=== PATIENT | male | born 1960 | race Caucasian/White ===

== ENCOUNTER 2019-12-24 22:29 | Observation (INO) | payer OTHER ==
--- NOTE | 2019-12-24 22:56 | Emergency Department Record ---
History of Present Illness - General Chief Complaint: Recheck - Other Stated Complaint: NEEDS TRANSFUSION Time Seen by Provider: 12/24/19 22:32 Source: Patient, Family Mode of arrival: Ambulatory Limitations: No limitations - History of Present Illness Initial Comments: The patient is here due to being weak, fatigued and mildly dizzy for one day. He has a long hx of myelodyplastic syndrome and needs frequent blood transfusions. The patient is visiting from [facility] and is going home in 2 days for a Stem Cell transplant evaluation. He was here 5 weeks ago and did receive 2 units of blood and since that visit has received 10 units more. Now he is feeling like he is anemic again. The patient denies any fever, CP, or SOB but he does have a mild SÁNCHEZ which also is typical for when he needs blood. MD Complaint: Other Onset/Timin -: Days(s) Returns Today for: Other Symptoms Since Prior Visit: Other Associated Symptoms: Malaise - Related Data Home Medications Medication Instructions Recorded Confirmed Last Taken Amiloride HCl 12/24/19 Unknown Bumetanide 2 mg 12/24/19 Unknown [id number] 12/24/19 Unknown Deferiprone [Ferriprox] BID 12/24/19 12/24/19 Pramipexole Di-HCl [Mirapex] 1.25 mg PO 12/24/19 Unknown Rivaroxaban [Xarelto] DAILY 12/24/19 12/24/19 19:30 Ruxolitinib Phosphate [Jakafi] BID 12/24/19 12/24/19 19:30 Tamsulosin HCl [Flomax] 0.4 mg PO 12/24/19 Unknown Allergies Allergy/AdvReac Type Severity Reaction Status Date / Time guaifenesin [From Mucinex D] AdvReac PT UNSURE Verified 11/21/19 10:58 OF REACTION pseudoephedrine AdvReac PT UNSURE Verified 11/21/19 10:58 [From Mucinex D] OF REACTION Travel Screening - Travel/Exposure Within Last 30 Days Have you traveled within the last 30 days?: Yes Location Detail:: from [place] - Travel/Exposure Within Last Year Have you traveled outside the [place] in the last year?: No - Additonal Travel Details Have you been exposed to anyone with a communicable illness?: No - Travel Symptoms Symptom Screening: None Review of Systems Constitutional: Denies: Chills, Fever Eyes: Denies: Eye discharge ENT: Denies: Congestion Respiratory: Denies: Cough, Dyspnea Cardiovascular: Denies: Chest pain Endocrine: Reports: Fatigue Gastrointestinal: Denies: Nausea Genitourinary: Denies: Dysuria Musculoskeletal: Denies: Arthralgia Neurological: Denies: Abnormal gait, Confusion Past Medical History - SOCIAL HISTORY Smoking Status: Never smoker Alcohol Use: None Drug Use: None - RESPIRATORY Hx Respiratory Disorders: No Hx Pneumonia: Yes (x3 MRSA) Comment:: sinus surgery - CARDIOVASCULAR Hx Cardio Disorders: No - NEURO Hx Neuro Disorders: No - GI Hx GI Disorders: No - Hx Genitourinary Disorders: No - ENDOCRINE Hx Endocrine Disorders: No Hx Diabetes: No Hx Thyroid Disease: No - MUSCULOSKELETAL Hx Musculoskeletal Disorders: Yes Hx Arthritis: Yes Hx Back Injury: Yes - PSYCH Hx Psych Problems: No - HEMATOLOGY/ONCOLOGY Hx Hematology/Oncology Disorders: Yes Hx Anemia: Yes Hx Blood Disorders: Yes Hx Blood Transfusions: Yes Hx Blood Transfusion Reaction: No Family Medical History Any Significant Family History?: No Hx Resp Disorders: Father, Mother Physical Exam - General General Appearance: Alert, Oriented x3, Cooperative, No acute distress - Head Head exam: Atraumatic, Normocephalic, Normal inspection - Eye Eye exam: Normal appearance, PERRL - ENT Throat exam: Normal inspection. negative: Tonsillar erythema, Tonsillar exudate - Neck Neck exam: Normal inspection, Full ROM. negative: Tenderness - Respiratory Respiratory exam: Normal lung sounds bilaterally. negative: Respiratory distres s - Cardiovascular Cardiovascular Exam: Regular rate, Normal rhythm, Normal heart sounds - Extremities Extremities exam: Pedal edema (1+ bilaterally.). negative: Normal inspection - Neurological Neurological exam: Alert. negative: Motor sensory deficit Course Vital Signs 12/24/19 22:34 Temperature 97.9 F Pulse Rate [ 96 H Pulse Ox Probe] Respiratory 20 Rate Blood Pressure 122/72 [Left Arm] Pulse Ox 100 - Reevaluation(s) Reevaluation #1: The patient is doing very well at this time. I did discuss the low HGB and the need for admission for transfusions and the patient does agree. 12/24/19 23:41 Medical Decision Making - Data Complexity MDM Data: Labs Ordered and/or Reviewed, X-Ray Ordered and/or Reviewed, EKG Ordered and/or Reviewed - Lab Data Result diagrams: 12/24/19 22:54 12/24/19 23:01 - EKG Data -: EKG Interpreted by Me EKG: No Acute Changes (Prolonged MN interval.) - Radiology Data Radiology results: Report reviewed (CXR; Neg.) Disposition Disposition: Admit Clinical Impression: Anemia Qualifiers: Anemia type: unspecified type Qualified Code(s): D64.9 - Anemia, unspecified Disposition: Still a Patient at [facility] Decision to Admit: Admit from ER Decision to Admit Date: 12/24/19 Decision to Admit Time: 23:45 Accepting Physician: Fuad. Time Discussed w/Accepting Physician: 23:44 Condition: (2) Stable Time of Disposition: 23:44 Quality - Quality Measures Quality Measures: N/A - Blood Pressure Screening View Details: Yes Does Patient Have Any of the Following: No Blood Pressure Classification: Normal BP Reading Systolic Measurement: 102 Diastolic Measurement: 62 Screening for High Blood Pressure: < Normal BP, F/U Not Required > [[id number]]
[2019-12-24 23:22] LABS: ABSOLUTE NEUTROPHIL COUNT 1.34; HEMATOCRIT 18.3 % (42.0-52.0); MEAN CORPUSCULAR HEMOGLOBIN 27.6 pg (27-33); MEAN CORPUSCULAR HGB CONC 30.1 g/dl (32-36); MEAN PLATELET VOLUME 11.5 fl (7.4-10.4); PLATELET COUNT 85 K/uL (130-400); RED BLOOD COUNT 1.99 M/uL (4.40-5.70); RED CELL DISTRIBUTION WIDTH 16.8 % (11.5-14.5)
[2019-12-24 23:25] LABS: HEMOGLOBIN 5.5 gm/dl (14.0-18.0)
[2019-12-24 23:30] LABS: INR 1.3; PARTIAL THROMBOPLASTIN TIME 27.3 SECONDS (24.5-39.1); PROTHROMBIN TIME (PATIENT) 13.2 SECONDS (9.5-12.1)
[2019-12-24 23:31] LABS: BLOOD UREA NITROGEN 14 mg/dL (8-23); CREATININE 0.6 mg/dL (0.7-1.2); EST GLOMERULAR FILTRATION RATE > 60 mL/min
[2019-12-24 23:32] LABS: TOTAL PROTEIN 6.4 g/dL (6.6-8.7)
[2019-12-24 23:34] LABS: GLUCOSE,RANDOM 111 mg/dL (74-109)
[2019-12-24 23:36] LABS: ALB/GLOB RATIO 1.7 (1.1-1.8); ALT/SGPT 51 U/L (<41); AST/SGOT 36 U/L (10.0-50.0)
[2019-12-24 23:37] LABS: ALKALINE PHOSPHATASE 52 U/L (40-129)
[2019-12-24 23:38] LABS: PLATELET ESTIMATE DECREASED (NORMAL)
[2019-12-24] MEDS ORDERED: ACETAMINOPHEN 325 MG TAB PO ONE (23:42)
[2019-12-25] MEDS ORDERED: DIPHENHYDRAMINE HCL 25 MG CAPSULE PO PRN (00:09)
[2019-12-25] MEDS ORDERED: ACETAMINOPHEN 325 MG TAB PO PRN (00:09)
[2019-12-25 00:10] LABS: ABO GROUP A; ANTIBODY SCREEN NEGATIVE (NEGATIVE); RH TYPE POSITIVE
[2019-12-25 00:13] LABS: IMMED. SPIN CROSSMATCH COMPATIBLE
[2019-12-25 00:15] LABS: IMMED. SPIN CROSSMATCH COMPATIBLE
--- NOTE | 2019-12-25 00:21 | RADIOLOGY REPORT ---
EXAMINATION: Single View Chest EXAM DATE: 12/25/2019 12:11 AM TECHNIQUE: Single view chest INDICATION: JUSTIN hx COMPARISON: None. ENCOUNTER: Not applicable FINDINGS: The heart, mediastinum, and pulmonary vasculature are normal. No lung consolidation or pleural effu sions are present. No pneumothorax is present. IMPRESSION: No acute cardiopulmonary disease is present. Dictated by: Eva Granados MD on 12/25/2019 12:17 AM. .
[2019-12-25 08:15] LABS: MEAN CELL VOLUME 91.3 fl (81-97); MEAN CORPUSCULAR HGB CONC 31.4 g/dl (32-36); PLATELET COUNT 74 K/uL (130-400); RED CELL DISTRIBUTION WIDTH 16.1 % (11.5-14.5)
[2019-12-25 08:20] LABS: HEMOGLOBIN 6.6 gm/dl (14.0-18.0); MEAN CORPUSCULAR HEMOGLOBIN 28.6 pg (27-33)
--- NOTE | 2019-12-25 08:23 | History & Physical ---
History of Present Illness - Date of Service Date of Service for History & Physical: 12/25/19 - History of Present Illness Admitting Diagnosis: 1. Acute Severe Anemia. History of Present Illness: The patient is here due to being weak, fatigued and mildly dizzy for one day. He has a long hx of myelodyplastic syndrome and needs frequent blood transfusions. The patient is visiting from [facility] and is going home in 2 days for a Stem Cell transplant evaluation. He was here 5 weeks ago and did receive 2 units of blood and since that visit has received 10 units more. Now he is feeling like he is anemic again. The patient denies any fever, CP, or SOB but he does have a mild SÁNCHEZ which also is typical for when he needs blood. 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 He is currently enrolled in a drug trial taking CPI 0610 that began in June 2019, has received 8 cycles to date. 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 He reports is at his baseline chronic health and usual lab values including chronically elevated bilirubin. He will be admitted for transfusion PRBC to goal of Hgb 7-8 prior to discharge for his planned travel back to his home in [place] to resume his treatment plan for possible stem cell transplant. PCP Dr. Koo In man Significant ED findings; WBC 2.0 Hgb 5.5 Hct 18.3 Plt 85 Coags normal Calcium 8.6 Total bilirubin 1.4 BNP 268.4 CXR negative EKG NSR, prolonged WA PAST MEDICAL/SURGICAL HISTORY Past Surgical History right inquinal hernia 09/04/89 TIPS procedure-myeolfibrosis Left scope 02/2013 TIPS reconstruction 07/2018 PMH - Respiratory Hx Respiratory Disorders No Hx Pneumonia Yes: x3 MRSA Comment: sinus surgery PMH - Cardiovascular Hx Cardiovascular Disorders No PMH - Neuro Hx Neurological Disorders No PMH - GI Hx Gastrointestinal Disorders No PMH - Hx Genitourinary Disorders No PMH - Endocrine Hx Endocrine Disorders No Hx Diabetes No Hx Thyroid Disease No PMH - Musculoskeletal Hx Musculoskeletal Disorders Yes Hx Arthritis Yes Hx Back Injury Yes PMH - Psych Hx Psychiatric Problems No PMH - Hematology/Oncology Hx Hematology/Oncology Yes Disorders Hx Anemia Yes Hx Blood Disorders Yes Hx Blood Transfusion Reaction No Laboratory Results WBC 2.0 K/uL (4.2-12.2) L 12/25/19 08:07 RBC 2.30 M/uL (4.40-5.70) L 12/25/19 08:07 Hgb 6.6 gm/dl (14.0-18.0) L* 12/25/19 08:07 Hct 21.0 % (42.0-52.0) L 12/25/19 08:07 MCV 91.3 fl (81-97) 12/25/19 08:07 MCH 28.6 pg (27-33) 12/25/19 08:07 MCHC 31.4 g/dl (32-36) L 12/25/19 08:07 RDW 16.1 % (11.5-14.5) H 12/25/19 08:07 Plt Count 74 K/uL (130-400) L 12/25/19 08:07 MPV 12.0 fl (7.4-10.4) H 12/25/19 08:07 Neutrophils % 64.0 % (47-80) 12/24/19 22:54 Band Neutrophils % 8.0 % (0-5) H 12/24/19 22:54 Eosinophils % Not Reportable 12/25/19 08:07 Basophils % Not Reportable 12/25/19 08:07 Absolute Neutrophils 1.34 12/24/19 22:54 Lymphocytes 21.0 % (16-45) 12/24/19 22:54 Monocytes 4.0 % (0-9) 12/24/19 22:54 Differential Comment 12/24/19 22:54 Platelet Estimate Decreased (NORMAL) 12/24/19 22:54 Eosinophil Count 3.0 % (0-6) 12/24/19 22:54 PT 13.2 SECONDS (9.5-12.1) H 12/24/19 23:01 INR 1.3 12/24/19 23:01 APTT 27.3 SECONDS (24.5-39.1) 12/24/19 23:01 Sodium 141 mmol/L (136-145) 12/24/19 23:01 Potassium 3.5 mmol/L (3.4-4.5) 12/24/19 23:01 Chloride 105 mmol/L (98-107) 12/24/19 23:01 Carbon Dioxide 23.0 mmol/L (22-29) 12/24/19 23:01 Anion Gap 13.0 (7-16) 12/24/19 23:01 BUN 14 mg/dL (8-23) 12/24/19 23:01 Creatinine 0.6 mg/dL (0.7-1.2) L 12/24/19 23:01 Estimated GFR > 60 mL/min 12/24/19 23:01 Random Glucose 111 mg/dL (74-109) H 12/24/19 23:01 Calcium 8.6 mg/dL (8.8-10.2) L 12/24/19 23:01 Total Bilirubin 1.40 mg/dL (0.2-1.0) H 12/24/19 23:01 AST 36 U/L (10.0-50.0) 12/24/19 23:01 ALT 51 U/L (<41) H 12/24/19 23:01 Alkaline Phosphatase 52 U/L (40-129) 12/24/19 23:01 NT-Pro-B Natriuret Pep 268.40 pg/mL (<125) H 12/24/19 23:01 Total Protein 6.4 g/dL (6.6-8.7) L 12/24/19 23:01 Albumin 4.0 g/dL (4.0-5.0) 12/24/19 23:01 Globulin 2.4 gm/dL (1.4-4.8) 12/24/19 23:01 Albumin/Globulin Ratio 1.7 (1.1-1.8) 12/24/19 23:01 ABO Group A 12/24/19 23:05 Rh Factor Positive 12/24/19 23:05 Antibody Screen Negative (NEGATIVE) 12/24/19 23:05 Crossmatch Yes (YES) 12/24/19 00:00 Crossmatch Yes (YES) 12/24/19 00:00 Vital Signs - Last 24 Hrs Temp Pulse Resp BP Pulse Ox 12/25/19 07:00 98.1 F 72 16 117/71 97 12/25/19 03:34 97.9 F 74 16 109/68 99 12/25/19 02:55 97.9 F 80 16 102/67 98 12/25/19 02:06 82 16 02/02/20 01:20 97.6 F 82 16 105/66 96 12/24/19 23:41 80 20 102/62 96 12/24/19 22:34 97.9 F 96 H 20 122/72 100 Travel Screening - Travel/Exposure Within Last 30 Days Have you traveled within the last 30 days?: Yes Location Detail:: [place] - Travel/Exposure Within Last Year Have you traveled outside the [place] in the last year?: No - Additonal Travel Details Have you been exposed to anyone with a communicable illness?: Yes Exposure Details:: influenza - Travel Symptoms Symptom Screening: Headache, Weakness Review of Systems Constitutional: Denies: Chills, Fever Eyes: Denies: Eye discharge ENT: Denies: Congestion Respiratory: Denies: Cough, Dyspnea Cardiovascular: Denies: Chest pain Endocrine: Reports: Fatigue Gastrointestinal: Denies: Nausea Genitourinary: Denies: Dysuria Musculoskeletal: Denies: Arthralgia Neurological: Denies: Abnormal gait, Confusion Past Medical History - SOCIAL HISTORY Smoking Status: Never smoker Alcohol Use: None Drug Use: None - RESPIRATORY Hx Respiratory Disorders: No Hx Pneumonia: Yes (x3 MRSA) Comment:: sinus surgery - CARDIOVASCULAR Hx Cardio Disorders: No - NEURO Hx Neuro Disorders: No - GI Hx GI Disorders: No - Hx Genitourinary Disorders: No - ENDOCRINE Hx Endocrine Disorders: No Hx Diabetes: No Hx Thyroid Disease: No - MUSCULOSKELETAL Hx Musculoskeletal Disorders: Yes Hx Arthritis: Yes Hx Back Injury: Yes - PSYCH Hx Psych Problems: No - HEMATOLOGY/ONCOLOGY Hx Hematology/Oncology Disorders: Yes Hx Anemia: Yes Hx Blood Disorders: Yes Hx Blood Transfusions: Yes Hx Blood Transfusion Reaction: No Family Medical History Any Significant Family History?: No Hx Resp Disorders: Father, Mother H&P Meds/Allergies - Allergies Allergies: Allergies Allergy/AdvReac Type Severity Reaction Status Date / Time guaifenesin [From Mucinex D] AdvReac PT UNSURE Verified 11/21/19 10:58 OF REACTION pseudoephedrine AdvReac PT UNSURE Verified 11/21/19 10:58 [From Mucinex D] OF REACTION - Home Medications Home Medications Medication Instructions Recorded Confirmed Last Taken Amiloride HCl 15 mg PO BID 12/24/19 12/25/19 Unknown Bumetanide 3 mg PO BID 12/24/19 12/25/19 Unknown Deferiprone [Ferriprox] 1,500 mg PO TID 12/24/19 12/25/19 12/24/19 Pramipexole Di-HCl [Mirapex] 2 mg PO DAILY 12/24/19 12/25/19 Unknown Rivaroxaban [Xarelto] 10 mg PO DAILY 12/24/19 12/25/19 12/24/19 19:30 Ruxolitinib Phosphate [Jakafi] 10 mg PO BID 12/24/19 12/25/19 12/24/19 19:30 Tamsulosin HCl [Flomax] 0.4 mg PO DAILY 12/24/19 12/25/19 Unknown Copper Gluconate [Copper] 2 mg PO DAILY 12/25/19 12/25/19 Unknown Pyridoxine HCl (Vitamin B6) 100 mg PO DAILY 12/25/19 12/25/19 Unknown [Vitamin B-6] Thiamine HCl [B-1] 125 mg PO DAILY 12/25/19 12/25/19 Unknown - Active Medications Active Medications: Current Medications Acetaminophen (Tylenol 325mg) 650 mg PO Q6H PRN PRN Reason: PAIN - MILD(1-4)/FEVER Diphenhydramine HCl (Benadryl Capsule) 25 mg PO Q6H PRN PRN Reason: ALLERGY SYMPTOMS Physical Exam - Vital Signs Vital Signs: Vital Signs - Last 24 Hrs Temp Pulse Resp BP Pulse Ox 12/25/19 07:00 98.1 F 72 16 117/71 97 12/25/19 03:34 97.9 F 74 16 109/68 99 12/25/19 02:55 97.9 F 80 16 102/67 98 12/25/19 02:06 82 16 12/25/19 01:20 97.6 F 82 16 105/66 96 12/24/19 23:41 80 20 102/62 96 12/24/19 22:34 97.9 F 96 H 20 122/72 100 - General General Appearance: Alert, Oriented x3, Cooperative, No acute distress, Other (jaundiced) Limitations: No limitations - Head Head exam: Atraumatic, Normocephalic, Normal inspection - Eye Eye exam: Normal appearance, PERRL, Scleral icterus - ENT ENT exam: Mucous membranes moist Throat exam: Normal inspection. negative: Tonsillar erythema, Tonsillar exudate - Neck Neck exam: Normal inspection, Full ROM. negative: Tenderness - Respiratory Respiratory exam: Normal lung sounds bilaterally. negative: Respiratory distr ess - Cardiovascular Cardiovascular Exam: Regular rate, Normal rhythm, Normal heart sounds Peripheral Pulses: 3+: Radial (R), Radial (L) - GI/Abdominal GI/Abdominal exam: Soft. negative: Tenderness - Extremities Extremities exam: Pedal edema (1+ bilaterally, baseline per patient report). negative: Normal inspection - Neurological Neurological exam: Alert, Normal gait, Oriented X3. negative: Motor sensory deficit Results - Labs Result Diagrams: 12/25/19 08:07 12/24/19 23:01 Labs Last 24 Hours: Laboratory Results - last 24 hr 12/24/19 12/24/19 12/24/19 00:00 00:00 22:54 WBC 2.0 L RBC 1.99 L Hgb 5.5 L* Hct 18.3 L MCV 92.0 MCH 27.6 MCHC 30.1 L RDW 16.8 H Plt Count 85 L MPV 11.5 H Neutrophils % 64.0 Band Neutrophils % 8.0 H Eosinophils % Not Reportable Basophils % Not Reportable Absolute Neutrophils 1.34 Lymphocytes 21.0 Monocytes 4.0 Differential Comment Platelet Estimate Decreased Eosinophil Count 3.0 PT INR APTT Sodium Potassium Chloride Carbon Dioxide Anion Gap BUN Creatinine Estimated GFR Random Glucose Calcium Total Bilirubin AST ALT Alkaline Phosphatase NT-Pro-B Natriuret Pep Total Protein Albumin Globulin Albumin/Globulin Ratio ABO Group Rh Factor Antibody Screen Crossmatch Yes Yes 12/24/19 12/24/19 12/24/19 23:01 23:01 23:01 WBC RBC Hgb Hct MCV MCH MCHC RDW Plt Count MPV Neutrophils % Band Neutrophils % Eosinophils % Basophils % Absolute Neutrophils Lymphocytes Monocytes Differential Comment Platelet Estimate Eosinophil Count PT 13.2 H INR 1.3 APTT 27.3 Sodium 141 Potassium 3.5 Chloride 105 Carbon Dioxide 23.0 Anion Gap 13.0 BUN 14 Creatinine 0.6 L Estimated GFR > 60 Random Glucose 111 H Calcium 8.6 L Total Bilirubin 1.40 H AST 36 ALT 51 H Alkaline Phosphatase 52 NT-Pro-B Natriuret Pep 268.40 H Total Protein 6.4 L Albumin 4.0 Globulin 2.4 Albumin/Globulin Ratio 1.7 ABO Group Rh Factor Antibody Screen Crossmatch 12/24/19 12/25/19 23:05 08:07 WBC 2.0 L RBC 2.30 L Hgb 6.6 L* Hct 21.0 L MCV 91.3 MCH 28.6 MCHC 31.4 L RDW 16.1 H Plt Count 74 L MPV 12.0 H Neutrophils % Band Neutrophils % Eosinophils % Not Reportable Basophils % Not Reportable Absolute Neutrophils Lymphocytes Monocytes Differential Comment Platelet Estimate Eosinophil Count PT INR APTT Sodium Potassium Chloride Carbon Dioxide Anion Gap BUN Creatinine Estimated GFR Random Glucose Calcium Total Bilirubin AST ALT Alkaline Phosphatase NT-Pro-B Natriuret Pep Total Protein Albumin Globulin Albumin/Globulin Ratio ABO Group A Rh Factor Positive Antibody Screen Negative Crossmatch - Imaging and Cardiology Chest x-ray Status: Report reviewed VTE H&P Assessment - Risk for VTE Risk for VTE: Yes Risk Level: Moderate Risk Assessment Date: 12/25/19 Risk Assessment Time: 08:27 VTE Orders Placed or Will Be Placed: Yes Plan - Inpatient Certification Inpatient Certification: Admit to inpatient care: Based on my medical assessment, after consideration of patient's risk factors (age, co-morbidities and patient presenting symptoms and acuity), I expect that this patient will remain in the hospital greater than or equal to two midnights and that the services needed warrant inpatient care because: Patient Risk Factors: severe symptomatic anemia] Estimated length of stay: [48-72 ours] The patient may reasonably be expected to be discharged or transferred to a hospital within 96 hours after admission to [facility]. Services needed: [PRBC infusions] Post hospital care (if known): [] I certify that my determination is in accordance with my understanding of Medicare requirements for reasonable and necessary inpatient services. 12/25/19 08:33 - Detailed Diagnosis and Plan (1) Anemia Current Visit: Yes Status: Acute Qualifiers: Anemia type: bone marrow failure Base Code: D64.9 - ANEMIA, UNSPECIFIED Comment: 12/25/19 - Chronic due to myelodysplasticplastic syndrome - Hgb 5.5 in ED, 6.6 after 2 units PRBC - Plan to return to [place] tomorrow for continue planning for stem cell transplant - Will transfuse 2 additional units of PRBC followed by Lasix 40mg IV x1 to reach at least HGb 7.0 prior to discharging (2) Polycythemia vera Current Visit: Yes Status: Acute Base Code: D45 - POLYCYTHEMIA VERA Comment: 12/25/19 - Plan as above - Continue home meds (Ameloride, Bumex, Xarelto, Ferriprox (3) DVT prophylaxis Current Visit: Yes Status: Acute Base Code: Z29.9 - ENCOUNTER FOR PROPHYLACTIC MEASURES, UNSPECIFIED Comment: 12/25/19 - Xarelto per home dosing (4) Full code status Current Visit: Yes Status: Acute Base Code: Z78.9 - OTHER SPECIFIED HEALTH STATUS
[2019-12-25 08:47] LABS: HYPOCHROMIA 2+; PLATELET ESTIMATE DECREASED (NORMAL)
[2019-12-25] MEDS ORDERED: AMILORIDE HCL PO SCH (10:00)
[2019-12-25] MEDS ORDERED: BUMETANIDE 1 MG TABLET PO SCH (10:00)
[2019-12-25] MEDS ORDERED: RIVAROXABAN 10 MG TABLET PO SCH (10:00)
[2019-12-25] MEDS ORDERED: [UNRECOGNIZED DRUG - OTHER] PO SCH (10:00)
[2019-12-25] MEDS ORDERED: TAMSULOSIN HCL 0.4 MG CAP.ER.24H PO SCH (10:00)
[2019-12-25] MEDS ORDERED: RUXOLITINIB PHOSPHATE 10 MG PO SCH ×2 (10:00→22:00)
[2019-12-25 12:22] LABS: IMMED. SPIN CROSSMATCH COMPATIBLE
[2019-12-25 12:23] LABS: IMMED. SPIN CROSSMATCH COMPATIBLE
[2019-12-25] MEDS: [UNRECOGNIZED DRUG - OTHER] PO SCH ×2 (14:48→19:03)
[2019-12-25] MEDS ORDERED: AMILORIDE 5 MG PO SCH (15:00)
[2019-12-25] MEDS ORDERED: BUMETANIDE 1 MG PO SCH (15:00)
[2019-12-25] MEDS ORDERED: [UNRECOGNIZED DRUG - OTHER] MC SCH (16:00)
[2019-12-25] MEDS ORDERED: FUROSEMIDE IV 40MG/4ML VIAL IVP ONE (16:34)
--- NOTE | 2019-12-25 18:13 | Discharge Summary ---
Providers Discharge Summary Date: 12/25/19 Date of admission: 12/25/19 00:22 Expected Date of Discharge: 12/25/19 Attending physician: EDD ABEBE Primary care physician: Hanane Topete Physical Exam - Vital Signs Vital Signs: Vital Signs - Last 24 Hrs Temp Pulse Resp BP Pulse Ox 12/25/19 11:00 98.1 F 91 H 15 116/63 97 12/25/19 09:00 15 12/25/19 07:00 98.1 F 72 16 117/71 97 12/25/19 03:34 97.9 F 74 16 109/68 99 12/25/19 02:55 97.9 F 80 16 102/67 98 12/25/19 02:06 82 16 12/25/19 01:20 97.6 F 82 16 105/66 96 12/24/19 23:41 80 20 102/62 96 12/24/19 22:34 97.9 F 96 H 20 122/72 100 - General General Appearance: Alert, Oriented x3, Cooperative, No acute distress, Other (jaundiced) Limitations: No limitations - Head Head exam: Atraumatic, Normocephalic, Normal inspection - Eye Eye exam: Normal appearance, PERRL, Scleral icterus - ENT ENT exam: Mucous membranes moist Throat exam: Normal inspection. negative: Tonsillar erythema, Tonsillar exudate - Neck Neck exam: Normal inspection, Full ROM. negative: Tenderness - Respiratory Respiratory exam: Normal lung sounds bilaterally. negative: Respiratory distress - Cardiovascular Cardiovascular Exam: Regular rate, Normal rhythm, Normal heart sounds Peripheral Pulses: 3+: Radial (R), Radial (L) - GI/Abdominal GI/Abdominal exam: Soft. negative: Tenderness - Extremities Extremities exam: Pedal edema (1+ bilaterally, baseline per patient report). negative: Normal inspection - Neurological Neurological exam: Alert, Normal gait, Oriented X3. negative: Motor sensory deficit Hospitalization - Hospitalization Admission Diagnosis: 1. Acute Severe Anemia. 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 - Hgb 5.5 in ED, 6.6 after 2 units PRBC - Plan to return to [place] tomorrow for continue planning for stem cell transplant - Will transfuse 2 additional units of PRBC followed by Lasix 40mg IV x1 to reach at least HGb 7.0 prior to discharging (2) Polycythemia vera Status: Acute Base Code: D45 - POLYCYTHEMIA VERA Comment: 12/25/19 - Plan as above - Continue home meds (Ameloride, Bumex, Xarelto, Ferriprox (3) DVT prophylaxis Status: Acute Base Code: Z29.9 - ENCOUNTER FOR PROPHYLACTIC MEASURES, UNSPECIFIED Comment: 12/25/19 - Xarelto per home dosing (4) Full code status Status: Acute Base Code: Z78.9 - OTHER SPECIFIED HEALTH STATUS - Hospitalization Course Disposition: Home, Self-Care Hospital Course: The patient is here due to being weak, fatigued and mildly dizzy for one day. He has a long hx of myelodyplastic syndrome and needs frequent blood transfusions. The patient is visiting from [facility] and is going home in 2 days for a Stem Cell transplant evaluation. He was here 5 weeks ago and did receive 2 units of blood and since that visit has received 10 units more. Now he is feeling like he is anemic again. The patient denies any fever, CP, or SOB but he does have a mild SÁNCHEZ which also is typical for when he needs blood. 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 He is currently enrolled in a drug trial taking CPI 0610 that began in June 2019, has received 8 cycles to date. 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 He reports is at his baseline chronic health and usual lab values including chronically elevated bilirubin. He will be admitted for transfusion PRBC to goal of Hgb 7-8 prior to discharge for his planned travel back to his home in [place] to resume his treatment plan for possible stem cell transplant. PCP Dr. Hanane Topete Significant ED findings; WBC 2.0 Hgb 5.5 Hct 18.3 Plt 85 Coags normal Calcium 8.6 Total bilirubin 1.4 BNP 268.4 CXR negative EKG NSR, prolonged WA PAST MEDICAL/SURGICAL HISTORY Past Surgical History right inquinal hernia 09/04/89 TIPS procedure-myeolfibrosis Left scope 02/2013 TIPS reconstruction 07/2018 PMH - Respiratory Hx Respiratory Disorders No Hx Pneumonia Yes: x3 MRSA Comment: sinus surgery PMH - Cardiovascular Hx Cardiovascular Disorders No PMH - Neuro Hx Neurological Disorders No PMH - GI Hx Gastrointestinal Disorders No PMH - Hx Genitourinary Disorders No PMH - Endocrine Hx Endocrine Disorders No Hx Diabetes No Hx Thyroid Disease No PMH - Musculoskeletal Hx Musculoskeletal Disorders Yes Hx Arthritis Yes Hx Back Injury Yes PMH - Psych Hx Psychiatric Problems No PMH - Hematology/Oncology Hx Hematology/Oncology Yes Disorders Hx Anemia Yes Hx Blood Disorders Yes Hx Blood Transfusion Reaction No Laboratory Results WBC 2.0 K/uL (4.2-12.2) L 12/25/19 08:07 RBC 2.30 M/uL (4.40-5.70) L 12/25/19 08:07 Hgb 6.6 gm/dl (14.0-18.0) L* 12/25/19 08:07 Hct 21.0 % (42.0-52.0) L 12/25/19 08:07 MCV 91.3 fl (81-97) 12/25/19 08:07 MCH 28.6 pg (27-33) 12/25/19 08:07 MCHC 31.4 g/dl (32-36) L 12/25/19 08:07 RDW 16.1 % (11.5-14.5) H 12/25/19 08:07 Plt Count 74 K/uL (130-400) L 12/25/19 08:07 MPV 12.0 fl (7.4-10.4) H 12/25/19 08:07 Neutrophils % 64.0 % (47-80) 12/24/19 22:54 Band Neutrophils % 8.0 % (0-5) H 12/24/19 22:54 Eosinophils % Not Reportable 12/25/19 08:07 Basophils % Not Reportable 12/25/19 08:07 Absolute Neutrophils 1.34 12/24/19 22:54 Lymphocytes 21.0 % (16-45) 12/24/19 22:54 Monocytes 4.0 % (0-9) 12/24/19 22:54 Differential Comment 12/24/19 22:54 Platelet Estimate Decreased (NORMAL) 12/24/19 22:54 Eosinophil Count 3.0 % (0-6) 12/24/19 22:54 PT 13.2 SECONDS (9.5-12.1) H 12/24/19 23:01 INR 1.3 12/24/19 23:01 APTT 27.3 SECONDS (24.5-39.1) 12/24/19 23:01 Sodium 141 mmol/L (136-145) 12/24/19 23:01 Potassium 3.5 mmol/L (3.4-4.5) 12/24/19 23:01 Chloride 105 mmol/L (98-107) 12/24/19 23:01 Carbon Dioxide 23.0 mmol/L (22-29) 12/24/19 23:01 Anion Gap 13.0 (7-16) 12/24/19 23: BUN 14 mg/dL (8-23) 12/24/19 23:01 Creatinine 0.6 mg/dL (0.7-1.2) L 12/24/19 23:01 Estimated GFR > 60 mL/min 12/24/19 23: Random Glucose 111 mg/dL (74-109) H 12/24/19 23: Calcium 8.6 mg/dL (8.8-10.2) L 12/24/19 23:01 Total Bilirubin 1.40 mg/dL (0.2-1.0) H 12/24/19 23:01 AST 36 U/L (10.0-50.0) 12/24/19 23:01 ALT 51 U/L (<41) H 12/24/19 23:01 Alkaline Phosphatase 52 U/L (40-129) 12/24/19 23: NT-Pro-B Natriuret Pep 268.40 pg/mL (<125) H 12/24/19 23:01 Total Protein 6.4 g/dL (6.6-8.7) L 12/24/19 23: Albumin 4.0 g/dL (4.0-5.0) 12/24/19 23: Globulin 2.4 gm/dL (1.4-4.8) 12/24/19 23: Albumin/Globulin Ratio 1.7 (1.1-1.8) 12/24/19 23: ABO Group A 12/24/19: Rh Factor Positive 02/01/20 23:05 Antibody Screen Negative (NEGATIVE) 12/24/19 23:05 Crossmatch Yes (YES) 12/24/19 00:00 Crossmatch Yes (YES) 12/24/19 00:00 Vital Signs - Last 24 Hrs Temp Pulse Resp BP Pulse Ox 12/25/19 07:00 98.1 F 72 16 117/71 97 12/25/19 03:34 97.9 F 74 16 109/68 99 12/25/19 02:55 97.9 F 80 16 102/67 98 12/25/19 02:06 82 16 12/25/19 01:20 97.6 F 82 16 105/66 96 12/24/19 23:41 80 20 102/62 96 12/24/19 22:34 97.9 F 96 H 20 122/72 100 12/25/19- Hospital course unremarkable. He did receive a total of 4U PRBC and discharge with Hgb 9.2 Tolerated well, did receive Lasix 40mg IV X 1 in addition to his home medications to help with fluid burden. The dizziness and headache he arrived with have completely resolved. Will discharge home for him to return to his home state to continue his plan of care for possible stem cell transplant. Procedures: Imaging and X-Rays 12/24/19 23:54 CHEST 1 VIEW [RAD] Stat Cardiology Procedures 12/24/19 23:54 EKG NOW 12/25/19 00:09 Service Station Attendant .Continuous Abnormal Labs: Abnormal Lab Results 12/24/19 12/24/19 12/24/19 Range/Units 22:54 23:01 23:01 WBC 2.0 L (4.2-12.2) K/uL RBC 1.99 L (4.40-5.70) M/uL Hgb 5.5 L* (14.0-18.0) gm/dl Hct 18.3 L (42.0-52.0) % MCHC 30.1 L (32-36) g/dl RDW 16.8 H (11.5-14.5) % Plt Count 85 L (130-400) K/uL MPV 11.5 H (7.4-10.4) fl Band Neutrophils % 8.0 H (0-5) % Lymphocytes (16-45) % PT 13.2 H (9.5-12.1) SECONDS Creatinine 0.6 L (0.7-1.2) mg/dL Random Glucose 111 H (74-109) mg/dL Calcium 8.6 L (8.8-10.2) mg/dL Total Bilirubin 1.40 H (0.2-1.0) mg/dL ALT 51 H (<41) U/L NT-Pro-B Natriuret Pep (<125) pg/mL Total Protein 6.4 L (6.6-8.7) g/dL 12/24/19 12/25/19 Range/Units 23:01 08:07 WBC 2.0 L (4.2-12.2) K/uL RBC 2.30 L (4.40-5.70) M/uL Hgb 6.6 L* (14.0-18.0) gm/dl Hct 21.0 L (42.0-52.0) % MCHC 31.4 L (32-36) g/dl RDW 16.1 H (11.5-14.5) % Plt Count 74 L (130-400) K/uL MPV 12.0 H (7.4-10.4) fl Band Neutrophils % (0-5) % Lymphocytes 14.0 L (16-45) % PT (9.5-12.1) SECONDS Creatinine (0.7-1.2) mg/dL Random Glucose (74-109) mg/dL Calcium (8.8-10.2) mg/dL Total Bilirubin (0.2-1.0) mg/dL ALT (<41) U/L NT-Pro-B Natriuret Pep 268.40 H (<125) pg/mL Total Protein (6.6-8.7) g/dL Condition at Discharge: (2) Stable Discharge Medications - Discharge Medications Home Medications: Ambulatory Orders Amiloride HCl 15 mg PO BID 12/24/19 [Last Taken Unknown] Bumetanide 3 mg PO BID 12/24/19 [Last Taken Unknown] Deferiprone [Ferriprox] 1,500 mg PO TID 12/24/19 [Last Taken 12/24/19] Pramipexole Di-HCl [Mirapex] 2 mg PO DAILY 12/24/19 [Last Taken Unknown] Rivaroxaban [Xarelto] 10 mg PO DAILY 12/24/19 [Last Taken 12/24/19 19:30] Ruxolitinib Phosphate [Jakafi] 10 mg PO BID 12/24/19 [Last Taken 12/24/19 19:30] Tamsulosin HCl [Flomax] 0.4 mg PO DAILY 12/24/19 [Last Taken Unknown] Copper Gluconate [Copper] 2 mg PO DAILY 12/25/19 [Last Taken Unknown] Pyridoxine HCl (Vitamin B6) [Vitamin B-6] 100 mg PO DAILY 12/25/19 [Last Taken Unknown] Thiamine HCl [B-1] 125 mg PO DAILY 12/25/19 [Last Taken Unknown] Discharge Plan - Discharge Instructions Activity at Discharge: Increase Activity as Tolerated Diet at Discharge: Advance to Usual Diet Instructions: Myelodysplastic Syndromes (DC) Additional Instructions: Activity: Increase Activity as Tolerated Diet: Advance to Usual Diet Consults: [] Follow Up: [Follow up with PCP and specialist as already scheduled] Dressing/Wound Care: (Type) (Change) Additional: [Continue home medications Return to the ED with any new or worsening symptoms] Quality Measures - Quality Measures Quality Measures: Documentation of Current Medications in Medical Record, Screening for High Blood Pressure and F/U Documented - Current Medications Quality Measure: Measure #130: Documentation of Current Medications Documentation of Current Medications: <Current Medications Documented/Reviewed> [G8427] - Blood Pressure Screening Quality Measure: Screening for High Blood Pressure and Follow-Up Documented Does Patient Have Any of the Following: No Blood Pressure Classification: Normal BP Reading Systolic Measurement: 113 Diastolic Measurement: 70 Screening for High Blood Pressure: < Normal BP, F/U Not Required > [G8783] - Elder Abuse Suspicion Index EASI Reference Information: Loreto DOMINGUEZ, Miladis C, Kaelyn D, Ramona Dang.Development and validation of a tool to assist physicians identification of elder abuse: The Elder Abuse Suspicion Index (EASI ). Journal of Elder Abuse and Neglect, 2008; 20 (3): 276-300.
[2019-12-25] MEDS ORDERED: JAKAFI 10 MG PO SCH (19:30)
[2019-12-25] MEDS ORDERED: XARELTO 10 MG PO SCH (19:30)
[2019-12-25] MEDS ORDERED: PRAMIPEXOLE 1 MG PO SCH (19:30)
[2019-12-25] MEDS ORDERED: TAMSULOSIN 0.4 MG PO SCH (19:30)
[2019-12-25 19:31] LABS: ABSOLUTE NEUTROPHIL COUNT 3.09; BASO % 0.7 % (0-6); EOS % 2.9 % (0-6); GRAN % 75.1 % (47-80); HEMATOCRIT 29.1 % (42.0-52.0); HEMOGLOBIN 9.2 gm/dl (14.0-18.0); LYMPH % 15.5 % (16-45); MEAN CELL VOLUME 89.3 fl (81-97); MEAN CORPUSCULAR HEMOGLOBIN 28.2 pg (27-33); MEAN CORPUSCULAR HGB CONC 31.6 g/dl (32-36); MEAN PLATELET VOLUME 11.6 fl (7.4-10.4); MONO % 5.8 % (0-9); PLATELET COUNT 104 K/uL (130-400); RED BLOOD COUNT 3.26 M/uL (4.40-5.70); RED CELL DISTRIBUTION WIDTH 15.9 % (11.5-14.5); WHITE BLOOD COUNT W/O DIFF 4.1 K/uL (4.2-12.2)
[2019-12-25 19:46] LABS: BLOOD UREA NITROGEN 14 mg/dL (8-23); CREATININE 0.7 mg/dL (0.7-1.2); EST GLOMERULAR FILTRATION RATE > 60 mL/min; GLUCOSE,RANDOM 188 mg/dL (74-109)
[2019-12-25] MEDS ORDERED: POTASSIUM CHLORIDE 20 MEQ TABLET PO ONE (20:00)
[2019-12-25] MEDS ORDERED: BUMETANIDE 1 MG MC SCH (22:00)
[2019-12-25] MEDS ORDERED: AMILORIDE PO SCH (22:00)
[2019-12-26] MEDS ORDERED: PRAMIPEXOLE DI HCL 2 MG PO SCH (10:00)
[2019-12-26] MEDS ORDERED: RIVAROXABAN 10 MG MC SCH (10:00)
[2019-12-26] MEDS ORDERED: TAMSULOSIN HCL 0.4 MG MC SCH (10:00)
== END 2019-12-25 20:26 | disposition home or self-care (01) ==
LOC: ER 22:29 → INTOOBSV 12-25 00:22 → MEDSURG 12-25 00:22
PROVIDERS: ADMIT Internal Medicine; ATTEND Internal Medicine
DX: D64.9 Anemia, unspecified (principal); D75.81 Myelofibrosis; D45 Polycythemia vera; R42 Dizziness and giddiness; R60.9 Edema, unspecified; M19.90 Unspecified osteoarthritis, unspecified site; Z86.14 Personal history of Methicillin resistant Staphylococcus aureus infection; Z96.89 Presence of other specified functional implants; I82.0 Budd-Chiari syndrome; I26.99 Other pulmonary embolism without acute cor pulmonale; Z79.01 Long term (current) use of anticoagulants
CPT/HCPCS: 36430; 71045; 80048; 80053; 83880; 85025; 85027; 85610; 85730; 86850; 86900; 86901; 93005; 93010; 99236; 99285; J1940